=== PATIENT | female | born 1985 | race Two or more races ===

== ENCOUNTER → 2024-02-28 10:28 | Outpatient (REF) | payer BC, SELFPAY | LOC: PNTC 10:28 | PROVIDERS: ATTENDING PHYSICIAN Obstetrics & Gynecology | DX: O36.8190 Decreased fetal movements, unspecified trimester, not applicable or unspecified (principal) | CPT/HCPCS: 59025; 76815 ==

== ENCOUNTER 2024-03-04 06:59 | Inpatient (IN) | payer BC, SELFPAY ==
[2024-03-04 07:15] VITALS: BMI 41.6
[2024-03-04 07:18] VITALS: BP 123/75
[2024-03-04 07:44] LABS: Hematocrit 40.4 % (37.0-47.0); Hemoglobin 13.9 g/dL (12.0-16.0); Mean Corp Hgb Conc. 34.4 g/dL (33.0-37.0); Mean Corpuscular Hgb 32.7 pg (27.0-31.0); Mean Corpuscular Volume 95.1 fL (81.0-99.0); Mean Platelet Volume 10.8 fL (7.4-10.4); Platelet Count 163 10^3/uL (130-400); Red Blood Cell Count 4.25 10^6/uL (4.20-5.40); Red Cell Dist. Width 14.4 % (11.5-14.5)
[2024-03-04] MEDS: ANCEF 10 IV (08:11)
[2024-03-04] MEDS: TYLENOL 1000 MG PO (08:11)
[2024-03-04] MEDS: BICITRA 30 ML PO (08:11)
[2024-03-04] MEDS: LR 1000 IV (08:11)
[2024-03-04] MEDS: PITOCIN 30 UNITS/NSS 500 ML IV (09:15)
[2024-03-04] MEDS: TORADOL 15 MG IV ×2 (15:19→20:43)
[2024-03-04] MEDS: ZOFRAN 4 MG IV (16:14)
[2024-03-05] MEDS: TORADOL 15 MG IV ×2 (02:49→08:44)
[2024-03-05 03:23] LABS: Hematocrit 33.2 % (37.0-47.0); Hemoglobin 11.1 g/dL (12.0-16.0); Mean Corp Hgb Conc. 33.4 g/dL (33.0-37.0); Mean Corpuscular Hgb 31.8 pg (27.0-31.0); Mean Corpuscular Volume 95.1 fL (81.0-99.0); Mean Platelet Volume 10.5 fL (7.4-10.4); Platelet Count 159 10^3/uL (130-400); Red Blood Cell Count 3.49 10^6/uL (4.20-5.40); Red Cell Dist. Width 14.4 % (11.5-14.5); White Blood Cell Count 13.6 10^3/uL (4.8-10.8)
[2024-03-05] MEDS: PRENATAL PLUS 1 TABLET PO (08:44)
[2024-03-05] MEDS: FLUSH (NSS) 2 FLUSH IV (08:45)
[2024-03-05] MEDS: MYLICON 80 MG PO ×2 (08:47→20:53)
[2024-03-05] MEDS: SENOKOT-S 1 TABLET PO (08:47)
[2024-03-05 11:40] LABS: Syphilis/T. pallidum Ab Reflex Negative (Negative)
[2024-03-05] MEDS: TYLENOL 650 MG PO ×2 (15:29→21:48)
[2024-03-05] MEDS: MOTRIN 600 MG PO ×2 (15:30→21:48)
[2024-03-06] MEDS: PERCOCET 5/325 1 TABLET PO ×4 (00:17→18:46)
[2024-03-06] MEDS: MOTRIN 600 MG PO ×3 (06:00→18:46)
[2024-03-06] MEDS: PRENATAL PLUS 1 TABLET PO (08:15)
[2024-03-06] MEDS: SENOKOT-S 1 TABLET PO (18:46)
[2024-03-07] MEDS: PERCOCET 5/325 1 TABLET PO ×2 (00:18→08:32)
[2024-03-07] MEDS: MOTRIN 600 MG PO ×2 (00:19→08:31)
[2024-03-07] MEDS: PRENATAL PLUS 1 TABLET PO (08:31)
--- NOTE | 2024-03-07 08:33 | W.DS.TRANS ---
DC Summary - [employer]
-
Discharge Instructions:
Discharge Diagnosis/Procedures status-post repeat
Diet As tolerated
Activity As tolerated
Driving Restrictions No driving for 2 weeks
Bathing Restrictions OK to Shower
Instructions:
Stand-Alone Forms: LDRP Delivery
Changes to Home Medications: No
Discharge Medications:
DC Medications w/original date entered in [facility]
vit no.95-ferrous fumarate 28 mg-folic acid 800 mcg tablet () 1 ea PO DAILY Supplement 03/23/20
cetirizine 10 mg capsule (Zyrtec) 10 mg PO DAILY Allergies 03/04/24
acetaminophen 325 mg tablet 650 mg (2 x 325 mg) PO Q4HPRN PRN mild pain #0 tabs 03/06/24
ibuprofen 600 mg tablet 600 mg PO Q6HPRN PRN cramps #60 tabs 03/06/24
sennosides 8.6 mg-docusate sodium 50 mg tablet 1 tab PO DAILYPRN PRN constipation #0 tabs 03/06/24
oxycodone 5 mg tablet 5 mg PO Q6H PRN severe pain #8 tabs 03/07/24
Home Medication Changes
Pending Results: No
Total time spent discharging patient (in min): 25
== END 2024-03-07 10:55 | disposition home or self-care (01) | DRG 788 ==
LOC: LDRP 06:59
PROVIDERS: ADMITTING PHYSICIAN Obstetrics & Gynecology
PROC: 10D00Z1 Extraction of Products of Conception, Low, Open Approach (ICD-10-PCS; 2024-03-04)
DX: O34.211 Maternal care for low transverse scar from previous cesarean delivery (principal); Z37.0 Single live birth; Z88.2 Allergy status to sulfonamides; Z3A.39 39 weeks gestation of pregnancy
CPT/HCPCS: 85027; 86780; 86850; 86900; 86901

== ENCOUNTER → 2024-06-28 11:28 | Outpatient (REF) | payer BC, SELFPAY | LOC: HWRAD 11:28 | PROVIDERS: ATTENDING PHYSICIAN Nurse Practitioner | DX: E06.3 Autoimmune thyroiditis (principal) | CPT/HCPCS: 76536 ==